=== PATIENT | female | born 1985 | race Caucasian/White ===

== ENCOUNTER 2022-09-09 05:59 | Emergency (ER) | payer SELFPAY ==
[2022-09-09] MEDS ORDERED: Ketorolac Tromethamine 60 MG/2 ML VIAL ONE (06:34)
[2022-09-09] MEDS ORDERED: diphenhydrAMINE 50 MG/ML VIAL ONE (06:34)
[2022-09-09] MEDS ORDERED: Sodium Chloride 0.9% 1,000 ML ONE (06:34)
[2022-09-09] MEDS ORDERED: Dexamethasone 4 mg/ml Vial ONE (06:34)
[2022-09-09] MEDS ORDERED: Ondansetron PF 4 MG/2 ML Vial ONE (06:34)
[2022-09-09] MEDS ORDERED: Prochlorperazine 10 MG/2 ML VIAL ONE (06:50)
== END 2022-09-09 09:00 | disposition home or self-care (01) ==
LOC: NAV ERS 05:59
DX: G43.109 Migraine with aura, not intractable, without status migrainosus (principal); F17.210 Nicotine dependence, cigarettes, uncomplicated
CPT/HCPCS: 96365; 96375; J0780; J1100; J1200; J1885; J2405; J7050